=== PATIENT | female | born 1950 ===

== ENCOUNTER 2021-05-13 15:36 | Outpatient (REF) | payer MEDICARE, BC, SELFPAY ==
[2021-05-13 16:04] LABS: ALT 24 U/L (14-59); AST 17 U/L (15-37); Albumin 3.8 g/dL (3.4-5.0); Alkaline Phosphatase 80 U/L (46-116); Anion Gap 7.6 mmol/L (3-11); BUN 17 mg/dL (7-18); Bilirubin, Total 0.4 mg/dL (0.2-1.0); CO2 28.4 mmol/L (21.0-32.0); CREATININE 0.9 mg/dL (0.55-1.02); Calcium 8.7 mg/dL (8.5-10.1); Calculated LDL 148 mg/dL (<100); Chloride 105 mmol/L (98-107); Cholesterol 224 mg/dL (<200); Glucose 104 mg/dL (74-106); HDL Cholesterol 41 mg/dL (40-60); Potassium 4.3 mmol/L (3.5-5.1); Sodium 141 mmol/L (136-145); Total Protein 6.9 g/dL (6.4-8.2); Triglyceride 175 mg/dL (<150)
== END 2021-05-13 15:37 | disposition home or self-care (01) ==
LOC: NCHCN 15:36
PROVIDERS: PCP Family Medicine; Visit Provider Family Medicine
DX: E66.9 Obesity, unspecified (principal); Z00.00 Encounter for general adult medical examination without abnormal findings; Z13.1 Encounter for screening for diabetes mellitus; Z13.220 Encounter for screening for lipoid disorders
CPT/HCPCS: 80053; 80061

== ENCOUNTER 2021-12-05 16:20 | Outpatient (REF) | payer MEDICARE, BC, SELFPAY ==
[2021-12-05 23:06] LABS: Anion Gap 9.4 mmol/L (3-11); BUN 18 mg/dL (7-18); CO2 26.6 mmol/L (21.0-32.0); CREATININE 0.9 mg/dL (0.55-1.02); Chloride 103 mmol/L (98-107); Glucose 106 mg/dL (74-106); Potassium 3.8 mmol/L (3.5-5.1); Sodium 139 mmol/L (136-145); TSH (W/Ref FT4) 1.27 uIU/mL (0.36-3.74)
[2021-12-08 11:23] LABS: Lyme Ab w Rflx to Lyme Confirm Negative (Negative)
[2021-12-10 22:11] LABS: Anaplasma phagocytophilum Negative (Negative); B. miyamotoi PCR Negative (Negative); Babesia divergens/MO-1 Negative (Negative); Babesia duncani Negative (Negative); Babesia microti Negative (Negative); Ehrlichia chaffeensis Negative (Negative); Ehrlichia ewingii/canis Negative (Negative); Ehrlichia muris eauclairensis Negative (Negative)
== END 2021-12-05 16:21 | disposition home or self-care (01) ==
LOC: LBN 16:20
PROVIDERS: PCP Family Medicine; Visit Provider Physician Assistant Medical
DX: M79.10 Myalgia, unspecified site (principal); Z11.8 Encounter for screening for other infectious and parasitic diseases
CPT/HCPCS: 80048; 87798; 84443; 86618

== ENCOUNTER 2022-05-20 08:25 | Outpatient (REF) | payer MEDICARE, BC, SELFPAY ==
[2022-05-20 15:53] LABS: Calculated LDL 146 mg/dL (<100); Cholesterol 240 mg/dL (<200); Glucose 110 mg/dL (74-106); HDL Cholesterol 49 mg/dL (40-60); Triglyceride 229 mg/dL (<150)
== END 2022-05-20 08:26 | disposition home or self-care (01) ==
LOC: NCHCN 08:25
PROVIDERS: PCP Family Medicine; Visit Provider Family Medicine
DX: E78.5 Hyperlipidemia, unspecified (principal); R73.9 Hyperglycemia, unspecified
CPT/HCPCS: 80061; 82947

== ENCOUNTER 2024-05-25 08:45 | Outpatient (REF) | payer MEDICARE, BC, SELFPAY ==
[2024-05-25 15:09] LABS: Anion Gap 8.9 mmol/L (3-11); BUN 14 mg/dL (7-18); CO2 25.1 mmol/L (21.0-32.0); CREATININE 0.9 mg/dL (0.55-1.02); Calcium 9.4 mg/dL (8.5-10.1); Calculated LDL 127 mg/dL (<100); Chloride 107 mmol/L (98-107); Cholesterol 211 mg/dL (<200); Estimated GFR 67.08 (mL/min/1.73m2); Glucose 101 mg/dL (74-106); HDL Cholesterol 48 mg/dL (40-60); Potassium 4.4 mmol/L (3.5-5.1); Sodium 141 mmol/L (136-145); Triglyceride 184 mg/dL (<150)
[2024-05-25 16:09] LABS: Hemoglobin A1C 5.7 % (<5.7)
--- NOTE | 2024-08-21 09:47 | W.NUTRFU ---
Date of service: 07/14/24 Time of Service: 13:00 Nutrition Note NOTE: Bri received referral for nutrition visit regarding weight mgt. We discussed the 4 pillars of wt mgt - diet/food choices, activity at baseline and scheduled exercise, sleep, stress mgt. Encouraged Bri to consider all 4 aspects and working on each to reduce barriers to weight loss. Discussed traditional food approach and staying away from processed foods and SSB's. Encouraged focus on more protein coming from plants to reduce kcals from animal foods and increase fiber and nutrition as well. Reviewed importance of meal timing -eating high protein and high fiber breakfast and cutting off eating towards the earlier evening to prevent snacking and avoid circadian rhythm influence of holding on to evening kcals. Discussed fiber and added sugar as important carbs to monitor and manage (lower added sugar to <20g per most days and increase fiber most days to at least 30g). Will remain available for follow up, any questions needing answered or if Bri would like more resources than the menu planning resources wer reviewed at visit. Time Spent in Nutritional Counseling and Treatment: 20 min
== END 2024-05-25 08:46 | disposition home or self-care (01) ==
LOC: NCHCN 08:45
PROVIDERS: PCP Family Medicine; Visit Provider Family Medicine
DX: E78.5 Hyperlipidemia, unspecified (principal); R73.01 Impaired fasting glucose
CPT/HCPCS: 00123; 80048; 80061; 83036